=== PATIENT | female | born 1945 | race Asian ===

== ENCOUNTER 2022-01-17 14:55 | Emergency (ER) | payer MEDICARE, MEDICAID, SELFPAY ==
--- NOTE | ~2022-01-17 | CT_ITS ---
EXAMINATION: CT ABDOMEN AND PELVIS WITHOUT CONTRAST CLINICAL INFORMATION: Right flank pain, pyelonephritis/stone COMPARISON: None TECHNIQUE: Multidetector volumetric imaging was performed from the superior aspect of the liver through the pubic symphysis. Sagittal and coronal reformatted images were obtained on the technologist's workstation. This CT examination was performed using dose optimization techniques as appropriate, variously including the following: *Automated exposure control *Adjustment of mA and/or kV according to patient size (this includes techniques or standardized protocols for targeted exams where dose is matched to indication/reason for exam; i.e. extremities or head) *Use of iterative reconstruction technique DLP: 320 mGy-cm FINDINGS: LUNG BASES: Subsegmental bibasilar atelectasis. A few scattered lung nodules are noted at the lung bases, such as measuring 7 x 5 mm on the right on image 24/771, 7 x 6 mm on the right on image 63, and 6 mm on the left on image 57. Coronary artery calcifications are present. LIVER, GALLBLADDER, AND BILIARY TREE: The liver is normal in size, shape, and attenuation. Subcentimeter hypodensity in the lower right hepatic lobe is suggestive of a cyst, though too small to characterize. No biliary ductal dilatation is present. Gallbladder appears absent. PANCREAS: Unremarkable. SPLEEN: Unremarkable. ADRENAL GLANDS: Unremarkable. KIDNEYS AND URETERS: No hydronephrosis or obstructing calculus identified. There are multiple scattered calculi throughout both kidneys, measuring up to 1.0 cm in the right lower pole and 2 stones each measuring 1.3 cm in the mid right kidney. Scattered left renal calculi are subcentimeter in size. There is a mid right renal cyst measuring approximately 4.2 cm; no follow-up recommended. BLADDER: Nearly empty and not adequately assessed. GASTROINTESTINAL TRACT: No evidence of bowel obstruction. Colonic diverticulosis is noted without convincing diverticulitis. No significant bowel wall thickening is seen. The appendix is unremarkable. No free fluid or free air is seen. ABDOMINAL WALL: No significant hernia is appreciated. LYMPH NODES: Normal. VASCULAR: Scattered atherosclerotic calcifications along the aorta. PELVIC VISCERA: Grossly unremarkable. OSSEOUS STRUCTURES: Unremarkable. CT/CT abdomen pelvis wo IV con IMPRESSION: 1. Multiple bilateral renal calculi, larger on the right than the left. No hydronephrosis or obstructing ureteral calculus identified. Limited assessment for pyelonephritis in the absence of intravenous contrast. 2. Bilateral lung nodules, age-indeterminate and which may be benign or malignant in nature. According to the UPDATED 2017 Fleischner Society recommendations, the advised follow-up imaging for multiple solid nodules, the largest measuring 6 mm or greater, is: LOW RISK PATIENT: CT at 3-6 months, then consider CT at 18-24 months. HIGH RISK PATIENT: CT at 3-6 months, then at 18-24 months.
[2022-01-17 15:00] VITALS: BP 134/66; PULSE 100; RESP 16; TEMP 37.6; O2SAT 97; BMI 18.6
[2022-01-17 15:34] LABS: MANUAL DIFF FLAG NO
[2022-01-17 15:39] LABS: Appearance Urine Cloudy; Color Urine Yellow; Glucose Urine UA 250 mg/dL (Negative); Leukocyte Esterase Urine Large (3+) (Negative); Nitrite Urine Negative (Negative); PH 5.5 (5.0-9.0); Specific Gravity - Urine 1.015 (1.005-1.025); UMIC TRIGGER UACC YES; Urine Blood Small (1+) (Negative); Urine Ketones Trace mg/dL (Negative); Urine Protein 30 (1+) mg/dL (Neg-Trace)
[2022-01-17 15:41] LABS: Basophils Percent Auto 0.4 % (0-2); Eosinophils Percent Auto 0.4 % (0-4); Hematocrit 34.7 % (37.0-47.0); Hemoglobin 11.4 g/dl (12.0-16.0); Imm Gran Abs Auto 0.01 X10*3/uL (0.00-0.03); Imm Gran Pct Auto 0.2 % (0.0-0.4); Lymphocytes Absolute Auto 0.8 X10*3/uL (1.2-4.9); Lymphocytes Percent Auto 17.9 % (20-40); Mean Corpuscular HGB Conc 32.9 g/dl (31.0-35.0); Mean Corpuscular Hemoglobin 28.1 pg (27.0-33.0); Mean Corpuscular Volume 85.5 fL (80.0-98.0); Mean Platelet Volume 10.1 fL (9.4-12.3); Monocytes Absolute Auto 0.5 X10*3/uL (0.1-1.2); Monocytes Percent Auto 10.3 % (2-11); Neutrophils Absolute Auto 3.2 x10*3/uL (2.0-8.3); Neutrophils Percent Auto 70.8 % (45-73); Platelet Count 180 X10*3/uL (160-400); Red Blood Count 4.06 X10*6/uL (4.20-5.50); Red Cell Distribution Width 12.9 % (11.0-16.0); White Blood Count 4.6 X10*3/uL (4.8-10.8)
[2022-01-17 15:46] LABS: Bacteria Urine None Seen (None Seen); UACC Culture Trigger YES; WBC Urine >50 /HPF (0-5)
[2022-01-17 15:52] LABS: Alanine Aminotransferase 15 U/L (0-31); Alkaline Phosphatase 75 U/L (39-117); Anion Gap 19 (12-20); Aspartate Amino Transferase 16 U/L (5-31); Bilirubin Total 0.7 mg/dL (0.0-1.0); Blood Urea Nitrogen 18 mg/dL (9-16); Calcium 9.1 mg/dL (8.4-10.2); Carbon Dioxide 22 mmol/L (22-29); Chloride 99 mmol/L (96-108); Creatinine Clr Calc Pharmacy 34.8; Estimated Glomerular Filt Rate 51; Glucose Random 276 mg/dL (60-115); Potassium 4.6 mmol/L (3.3-5.1); Sodium 135 mmol/L (135-145); Total Protein 7.4 g/dL (6.5-8.0)
[2022-01-17 20:42] VITALS: BP 134/63; PULSE 106; RESP 20; TEMP 38.3; O2SAT 99
[2022-01-17] MEDS: Acetaminophen 325 MG TABLET 650 MG PO (20:59)
[2022-01-17 22:56] VITALS: BP 130/66; PULSE 95; RESP 14; TEMP 37.1; O2SAT 96
--- NOTE | 2022-01-17 23:11 | ED.FEMALEGU ---
HPI - Female Genitourinary General Chief complaint: Urogenital-Female Stated complaint: R side pain. possible uti Time Seen by Provider: 01/17/22 23:11 Source: patient Mode of arrival: ambulatory Limitations: no limitations History of Present Illness HPI Narrative: Patient's history of recurrent UTI with history of kidney stone, seen urologist in the past comes with UTI symptoms with dysuria hesitancy frequency for last 4 days started on Macrobid yesterday today patient had chills and right flank pain with nausea and came to the ER no vomiting no shortness of breath Related Data Previous Rx's Medication Instructions Recorded ciprofloxacin HCl 500 mg tablet 500 mg PO BID #20 tabs 01/18/22 (Cipro) Allergies Allergy/AdvReac Type Severity Reaction Status Date / Time No Known Allergies Allergy Verified 01/17/22 14:59 Review of Systems Review of Systems: Yes all other systems are reviewed and are negative [facility] Social History Social History Alcohol intake: never Patient Tobacco Use Status: Never used Tobacco Use of substances other than those prescribed or required for medical reasons: No Advance Directives: No Advance Directives Information Provided: Yes Patient : No Physical Exam Vital Signs: Vital Signs: Last Vital Signs Temp 98.7 F 01/17/22 22:56 Pulse 95 01/17/22 22:56 Resp 14 01/17/22 22:56 BP 130/66 01/17/22 22:56 Pulse Ox 96 01/17/22 22:56 O2 Del Method 01/17/22 22:56 BMI result Body Mass Index 18.6 Appearance: Alert. Oriented X3. No acute distress. Eyes: PERRLA, No Nystagmus ENT: Pharynx normal. Oral Mucosa moist Neck: Normal inspection. Neck supple. CVS: Normal heart rate and rhythm. Pulses normal. Respiratory: No respiratory distress. Equal air entry bilateral, no wheezing/rales/rhonchi Abdomen: Soft and nontender. Bowel sounds are present, no mass palpable, right CVA tenderness ++ Skin: Skin warm and dry. Normal skin color. Normal skin turgor. Extremities: No lower extremity edema. No calf tenderness Neuro: Oriented X 3. No motor deficit. No sensory deficit.No cerebellar signs , cranial nerves II-XII intact MDM - Female Genitourinary MDM Narrative Medical decision making narrative: Patient with significant UTI with kidney stone nonobstructive normal lactic acid normal CBC count will discharge patient home on Cipro advised to follow with urologist Medical Records Attestation: I reviewed the patient's medical records. Lab Data Attestation: I reviewed the patient's lab results. Result diagrams: 01/17/22 15:24 01/17/22 15:24 Labs: Lab Results 01/17/22 01/17/22 01/17/22 Range/Units 15:24 15:24 15:24 WBC 4.6 L (4.8-10.8) X10*3/uL RBC 4.06 L (4.20-5.50) X10*6/uL Hgb 11.4 L (12.0-16.0) g/dl Hct 34.7 L (37.0-47.0) % MCV 85.5 (80.0-98.0) fL MCH 28.1 (27.0-33.0) pg MCHC 32.9 (31.0-35.0) g/dl RDW 12.9 (11.0-16.0) % Plt Count 180 (160-400) X10*3/uL MPV 10.1 (9.4-12.3) fL Immature Gran % (Auto) 0.2 (0.0-0.4) % Neut % (Auto) 70.8 (45-73) % Lymph % (Auto) 17.9 L (20-40) % Bledsoe % (Auto) 10.3 (2-11) % Eos % (Auto) 0.4 (0-4) % Baso % (Auto) 0.4 (0-2) % Lymph # (Auto) 0.8 L (1.2-4.9) X10*3/uL Bledsoe # (Auto) 0.5 (0.1-1.2) X10*3/uL Eos # (Auto) 0.0 (0.0-0.4) X10*3/uL Baso # (Auto) 0.0 (0.0-0.2) X10*3/uL Abs Immat Gran (auto) 0.01 (0.00-0.03) X10*3/uL Absolute Neuts (auto) 3.2 (2.0-8.3) x10*3/uL Absolute Nucleated RBC 0.000 (0.0-0.012) X10*3/uL Nucleated RBC % (auto) 0.0 (0.0-0.2) /100WBC Sodium 135 (135-145) mmol/L Potassium 4.6 (3.3-5.1) mmol/L Chloride 99 (96-108) mmol/L Carbon Dioxide 22 (22-29) mmol/L Anion Gap 19 (12-20) BUN 18 H (9-16) mg/dL Creatinine 1.05 (0.5-1.4) mg/dL Estim Creat Clear Calc 34.8 Estimated GFR 51 Random Glucose 276 H (60-115) mg/dL Lactic Acid (0.5-2.0) mmol/L Calcium 9.1 (8.4-10.2) mg/dL Total Bilirubin 0.7 (0.0-1.0) mg/dL AST 16 (5-31) U/L ALT 15 (0-31) U/L Alkaline Phosphatase 75 (39-117) U/L Total Protein 7.4 (6.5-8.0) g/dL Albumin 4.0 (3.5-5.0) g/dL Urine Color Yellow Urine Appearance Cloudy Urine pH 5.5 (5.0-9.0) Ur Specific [place] 1.015 (1.005-1.025) Urine Protein 30 (1+) H (Neg-Trace) mg/dL Urine Glucose (UA) 250 H (Negative) mg/dL Urine Ketones Trace (Negative) mg/dL Urine Blood Small (1+) H (Negative) Urine Nitrite Negative (Negative) Ur Leukocyte Esterase Large (3+) H (Negative) Urine RBC 11-20 H (0-2) /HPF Urine WBC >50 H (0-5) /HPF Ur Squamous Epith Cells 6-10 (0-2) /HPF Urine Bacteria None Seen (None Seen) Hyaline Casts 3-5 (0-2) /LPF 01/17/22 Range/Units 23:48 WBC (4.8-10.8) X10*3/uL RBC (4.20-5.50) X10*6/uL Hgb (12.0-16.0) g/dl Hct (37.0-47.0) % MCV (80.0-98.0) fL MCH (27.0-33.0) pg MCHC (31.0-35.0) g/dl RDW (11.0-16.0) % Plt Count (160-400) X10*3/uL MPV (9.4-12.3) fL Immature Gran % (Auto) (0.0-0.4) % Neut % (Auto) (45-73) % Lymph % (Auto) (20-40) % Bledsoe % (Auto) (2-11) % Eos % (Auto) (0-4) % Baso % (Auto) (0-2) % Lymph # (Auto) (1.2-4.9) X10*3/uL Bledsoe # (Auto) (0.1-1.2) X10*3/uL Eos # (Auto) (0.0-0.4) X10*3/uL Baso # (Auto) (0.0-0.2) X10*3/uL Abs Immat Gran (auto) (0.00-0.03) X10*3/uL Absolute Neuts (auto) (2.0-8.3) x10*3/uL Absolute Nucleated RBC (0.0-0.012) X10*3/uL Nucleated RBC % (auto) (0.0-0.2) /100WBC Sodium (135-145) mmol/L Potassium (3.3-5.1) mmol/L Chloride (96-108) mmol/L Carbon Dioxide (22-29) mmol/L Anion Gap (12-20) BUN (9-16) mg/dL Creatinine (0.5-1.4) mg/dL Estim Creat Clear Calc Estimated GFR Random Glucose (60-115) mg/dL Lactic Acid 1.0 (0.5-2.0) mmol/L Calcium (8.4-10.2) mg/dL Total Bilirubin (0.0-1.0) mg/dL AST (5-31) U/L ALT (0-31) U/L Alkaline Phosphatase (39-117) U/L Total Protein (6.5-8.0) g/dL Albumin (3.5-5.0) g/dL Urine Color Urine Appearance Urine pH (5.0-9.0) Ur Specific [place] (1.005-1.025) Urine Protein (Neg-Trace) mg/dL Urine Glucose (UA) (Negative) mg/dL Urine Ketones (Negative) mg/dL Urine Blood (Negative) Urine Nitrite (Negative) Ur Leukocyte Esterase (Negative) Urine RBC (0-2) /HPF Urine WBC (0-5) /HPF Ur Squamous Epith Cells (0-2) /HPF Urine Bacteria (None Seen) Hyaline Casts (0-2) /LPF Discharge Plan Discharge Clinical Impression: Urinary tract infection, Kidney calculi Patient Disposition: Home, Self-Care Instructions: Kidney Stones (ED), Urinary Tract Infection in Women (ED) Additional Instructions: Drink plenty of fluids Take antibiotic as prescribed Follow-up with urology Prescriptions: New ciprofloxacin HCl [Cipro] 500 mg tablet 500 mg PO BID Qty: 20 0RF
--- OUTSIDE RECORDS SUMMARY | 2022-01-17 23:20 | XMS_ITS | Continuity of Care Document ---
:1945 Author Organization [facility] Adult Address [address] [place] [address]- Care Team Providers Name Role Phone Lorenzo WARNER, Juanita Primary Care Physician [facility]counter [facility] Date(s): 05/11/21 - 06/10/21 [facility] Adult [address] [place] [phone]- Allergies, Adverse Reactions, Alerts No Known Allergies Immunizations Given and Recorded Vaccine Date Status Refusal Reason SARS-CoV-2 mRNA ([id number]) vax 05/27/21 Recorde d tetanus-diphtheria toxoids (Td)1 02/02/21 Given tetanus-diphtheria toxoids (Td)2 01/09/06 Given SARS-CoV-2 (COVID-19) mRNA BNT-162b2 vac 04/01/20 Recorde d pneumococcal 13-valent vaccine 02/15/15 Given influenza virus vaccine, inactivated 02/15/15 Given influenza virus vaccine, inactivated 04/03/14 Given influenza virus vaccine, inactivated 01/24/13 Given influenza virus vaccine, inactivated 01/05/11 Given influenza virus vaccine, inactivated 06/08/09 Given pneumococcal 23-valent vaccine 04/03/14 Given FluLaval (oldterm)3 01/11/12 Given FluLaval (oldterm) 03/17/10 Given Meningococcal Conjugate Vaccine 01/05/11 Given influ virus vac, H1N1, inactive(oldterm) 06/08/09 Given Influenza Virus Vaccine (oldterm)4 04/20/08 Given Influenza Virus Vaccine (oldterm) 05/08/06 Given Pneumococcal Vacc (oldterm) 02/13/06 Given 1Result Comment: [facility] [id number] Note: M[facility] PUBLIC [id number] Note: Vis Date 10/16/[id number] Note: [facility] public health Medications aspirin 81 mg oral tablet See Instructions, 1 tablet By Mouth 3 days a week, # 100 tablet, 3 Refills, 11/05/17 10:49:26 EDT Start Date: 11/05/17 Status: OrderedFreestyle Lancets See Instructions, # 6 pack/packet, Refills 5, Tot. Refills 5, Maintenance, test 2 times a day E11.9,09/23/20 15:53:00 EDT, Compound, 152, cm, 09/23/20 15:22:00 EDT, Height Start Date: 09/23/20 Status: OrderedFreestyle Lite Test Strips See Instructions, # 100 each, Refills 11, Tot. Refills 11, Maintenance, Use to test blood sugars twice daily for DMII, uncontrolled E11.9, 12/25/17 15:03:55 EDT, Compound Start Date: 12/25/17 Status: OrderedGlunil 5mg Glunil 5mg, 0 Refills, Maintenance, 02/02/21 11:47:00 EDT Start Date: 02/02/21 Status: OrderedLeft wrist splint Left wrist splint, See Instructions, # 1 each, Refills 0, Tot. Refills 0, Maintenance, Apply daily remove HS and PRN, 06/16/20 11:51:00 EST, Supply Start Date: 06/16/20 Status: OrderedmetFORMIN 1000 mg oral tablet 1 tablet, By Mouth, 2 times a day, # 180 tablet, 0 Refills, Maintenance, 03/10/21 11:55:00 EST, [id number], 152, cm, 02/02/21 11:27:00 EDT, Height Start Date: 03/10/21 Status: Orderedraloxifene 60 mg oral tablet 1 tablet = 60 mg, By Mouth, Daily, # 90 tablet, 3 Refills, Soft Stop, 06/16/20 9:18:00 EST, [id number], 152, cm, 06/14/20 14:01:00 EST, Height Start Date: 06/16/20 Status: OrderedSuper Collagen C, 2-3 tablets a day Super Collagen C, 2-3 tablets a day, Refills 0, Maintenance, 01/16/17 11:39:53, Compound Start Date: 01/16/17 Status: Ordered Problem List Condition Effective Dates Status Health Status Informant DM - Diabetes mellitus(Confirmed) Active Hypercholesterolemia(Confirmed) Active Kidney stones(Confirmed) Active Osteoporosis(Confirmed) Active Social History Social History Type Response Smoking Status Never (less than 100 in life time) entered on: 06/14/20 Sex
--- OUTSIDE RECORDS SUMMARY | 2022-01-17 23:21 | XMS_ITS | Continuity of Care Document ---
:1945 Author Organization [facility] Adult Address [address] [place] [address]- Care Team Providers Name Role Phone Juanita Ventura NP Primary Care Physician [place] [facility]21 [place] 02/09/21 [facility] [address] [place] [phone]- Encounter Diagnosis Uncontrolled type 2 diabetes mellitus (Discharge Diagnosis) - 02/02/21 Comprehensive diabetic foot examination, type 2 DM, encounter for (Discharge Diagnosis) - 02/02/21 Attending Physician: uJanita Ventura NP Allergies, Adverse Reactions, Alerts Substance Reaction Severity Status NKA Active Immunizations Given and Recorded Vaccine Date Status Refusal Reason tetanus-diphtheria toxoids (Td)1 02/02/21 Given tetanus-diphtheria toxoids (Td)2 01/09/06 Given pneumococcal 13-valent vaccine 02/15/15 Given influenza virus [...] Pneumococcal Vacc (oldterm) 02/13/06 Given 1Result Comment: [facility] [id number] Note: [facility] PUBLIC [id number] Note: Vis Date 10/16/[id number] Note: [facility] public health Medications aspirin 81 [...] Status: OrderedmetFORMIN 1000 mg oral tablet 1 tablet = 1,000 mg, By Mouth, 2 times a day, # 180 tablet, 1 Refills, Maintenance, 09/23/20 15:54:00 EDT, Tablet, [id number], 152, cm, 09/23/20 15:22:00 EDT, Height Start Date: 09/23/20 Status: Orderedraloxifene 60 mg oral tablet 1 [...] Hypercholesterolemia(Confirmed) Active Kidney stones(Confirmed) Active Osteoporosis(Confirmed) Active Diagnosis Diagnosis Type Effective Dates Health Clinical Infor mant Status Service Uncontrolled type 2 Discharge 02/02/21 diabetes mellitus Diagnosis Comprehensive Discharge 02/02/21 diabetic foot Diagnosis examination, type 2 DM, encounter for Vital Signs Most recent to oldest [Reference Range]: 1 Height 152 cm (02/02/21 11:27 AM) Weight 49.8 kg (02/02/21 11:27 AM) Oxygen Saturation [94-100 %] 97 % (02/02/21 11:27 AM) Pulse Rate [55-90 bpm] 97 bpm *H* (02/02/21 11:27 AM) Body Mass Index [18.5-24.99] 21.55 (02/02/21 11:27 AM) Blood Pressure [90-138/55-84 mm Hg] 112/61 mm Hg (02/02/21 11:27 AM) Temperature [96.8-100.4 DegF] 98.5 DegF (02/02/21 11:27 AM) Blood pressure sites Arm, left (02/02/21 11:27 AM) Temperature Route Oral (02/02/21 11:27 AM) Weight Obtained Via Standing scale (02/02/21 11:27 AM) Social History Social History Type Response Smoking Status Never (less than 100 in life time) entered on: 06/14/20 Sex
--- OUTSIDE RECORDS SUMMARY | 2022-01-17 23:21 | XMS_ITS | Continuity of Care Document ---
:1945 Author Organization [facility] Adult Address [address] [place] [address]- Care Team Providers Name Role Phone Juanita Ventura NP Primary Care Physician Encounter [facility] Date(s): 08/18/20 - 09/17/20 [facility] Adult [address] [place] [id number] Attending Physician: Admtr, Ar8 Allergies, Adverse Reactions, Alerts Substance Reaction Severity Status NKA Active Immunizations Given and Recorded Vaccine Date Status Refusal Reason pneumococcal 13-valent vaccine 02/15/15 Given influenza virus vaccine, inactivated 02/15/15 Given influenza virus vaccine, inactivated 04/03/14 Given influenza virus vaccine, inactivated 01/24/13 Given influenza virus vaccine, inactivated 01/05/11 Given influenza virus vaccine, inactivated 06/08/09 Given pneumococcal 23-valent vaccine 04/03/14 Given FluLaval (oldterm)1 01/11/12 Given FluLaval (oldterm) 03/17/10 Given Meningococcal Conjugate Vaccine 01/05/11 Given influ virus vac, H1N1, inactive(oldterm) 06/08/09 Given Influenza Virus Vaccine (oldterm)2 04/20/08 Given Influenza Virus Vaccine (oldterm) 05/08/06 Given Pneumococcal Vacc (oldterm) 02/13/06 Given tetanus-diphtheria toxoids (Td)3 01/09/06 Given 1Admin Note: Vis Date 10/16/[id number] Note: [facility] public [id number] Note: [facility] Medications aspirin 81 mg oral tablet See Instructions, 1 tablet By Mouth 3 days a week, # 100 tablet, 3 Refills, 11/05/17 10:49:26 EDT Start Date: 11/05/17 Status: OrderedFreestyle Lancets See Instructions, # 1 box, Maintenance, test 2 times a day E11.9, 05/01/18 15:07:04 EST, Compound Start Date: 05/01/18 Status: OrderedFreestyle Lite Test Strips See Instructions, # 100 each, Refills 11, Tot. Refills 11, Maintenance, Use to test blood sugars twice daily for DMII, uncontrolled E11.9, 12/25/17 15:03:55 EDT, Compound Start Date: 12/25/17 Status: OrderedglyBURIDE 5 mg oral tablet 5 mg, 1, tablet, By Mouth, 2 times a day, # 180 tablet, Refills 0, Tot. Refills 0, Maintenance, 06/16/20 9:16:00 EST, Route to Pharmacy Electronically, [facility]pharmacy #[id number], Partial fill upon patient request if the prescription is for a schedule II opio... Start Date: 06/16/20 Stop Date: 09/14/20 Status: OrderedLeft wrist splint Left wrist splint, See Instructions, # 1 each, Refills 0, Tot. Refills 0, Maintenance, Apply daily remove HS and PRN, 06/16/20 11:51:00 EST, Supply Start Date: 06/16/20 Status: OrderedmetFORMIN 1000 mg oral tablet 1 tablet = 1,000 mg, By Mouth, 2 times a day, # 180 tablet, 1 Refills, Maintenance, 06/16/20 9:18:00EST, Tablet, [facility]/pharmacy #[id number], 152, cm, 06/14/20 14:01:00 EST, Height Start Date: 06/16/20 Status: Orderedpravastatin 20 mg oral tablet See Instructions, TAKE 1 TABLET BY MOUTH EVERY DAY AT BEDTIME, # 90 tablet, Refills 3, Tot. Refills 3, Soft Stop, 06/16/20 9:18:00 EST, Instructions Replace Required Details, Route to [facility], [id number], 152, cm, 06/14/20 14:0... Start Date: 06/16/20 Status: Orderedraloxifene 60 mg oral tablet 1 tablet = 60 mg, By Mouth, Daily, # 90 tablet, 3 Refills, Soft Stop, 06/16/20 9:18:00 EST, [facility]/pharmacy #[id number], 152, cm, 06/14/20 14:01:00 EST, Height Start Date: 06/16/20 Status: OrderedSuper Collagen C, 2-3 tablets a day Super Collagen C, 2-3 tablets a day, Refills 0, Maintenance, 01/16/17 11:39:53, Compound Start Date: 01/16/17 Status: Ordered Problem List Condition Effective Dates Status Health Status Informant DM - Diabetes mellitus(Confirmed) Active Hypercholesterolemia(Confirmed) Active Kidney stones(Confirmed) Active Osteoporosis(Confirmed) Active Supraventricular Active tachycardia(Confirmed) Social History Social History Type Response Smoking Status Never (less than 100 in life time) entered on: 06/14/20 Sex
--- OUTSIDE RECORDS SUMMARY | 2022-01-17 23:21 | XMS_ITS | Continuity of Care Document ---
:1945 Author Organization [facility] Adult Address [address] [place] [address]- Care Team Providers Name Role Phone Lorenzo WARNER, Juanita Primary Care Physician Encounter [facility] Date(s): 09/22/20 - 10/22/20 [facility] Adult [address] [place] [address]- Allergies, Adverse Reactions, Alerts Substance Reaction Severity [...] (Td)3 01/09/06 Given 1Admin Note: Vis Date 10/16/[id number] Note: [facility] public [id number] Note: [facility] Medications aspirin 81 [...] times a day, # 180 tablet, Refills 5, Tot. Refills 5, Maintenance, 09/23/20 15:54:00 EDT, Route to Pharmacy Electronically, [facility]/pharmacy #[id number], Partial fill upon patient request if the prescription is for a schedule II opi... Start Date: 09/23/20 Stop Date: 03/17/22 Status: OrderedLeft wrist splint Left wrist splint, See Instructions, # 1 each, Refills 0, Tot. Refills 0, Maintenance, Apply daily remove HS and PRN, 06/16/20 11:51:00 EST, Supply Start Date: 06/16/20 Status: OrderedmetFORMIN 1000 mg oral tablet 1 tablet = 1,000 mg, By Mouth, 2 times a day, # 180 tablet, 1 Refills, Maintenance, 09/23/20 15:54:00 EDT, Tablet, [facility]/pharmacy #[id number], 152, cm, 09/23/20 15:22:00 EDT, Height Start Date: 09/23/20 Status: Orderedraloxifene 60 mg oral tablet 1 tablet = 60 mg, By Mouth, Daily, # 90 tablet, 3 Refills, Soft Stop, 06/16/20 9:18:00 EST, [facility]/pharmacy #[id number], 152, cm, 06/14/20 14:01:00 EST, Height [...]
--- OUTSIDE RECORDS SUMMARY | 2022-01-17 23:21 | XMS_ITS | Continuity of Care Document ---
:1945 Author Organization [facility] Adult Address [address] [place] [address]- Care Team Providers Name Role Phone Lorenzo WARNER, Juanita Primary Care Physician Encounter [facility] Date(s): 08/18/20 - 08/25/20 [facility] Adult [address] [place] [phone]- Attending Physician: Karlee Tejada MD Allergies, Adverse Reactions, Alerts Substance Reaction Severity [...] (Td)3 01/09/06 Given 1Admin Note: Vis Date 10/16/[id number] Note: [facility] public [id number] Note: [facility] Medications aspirin 81 [...] 06/16/20 9:16:00 EST, Route to Pharmacy Electronically, [facility]/pharmacy #[id number], Partial fill upon patient request [...] tablet, 1 Refills, Maintenance, 06/16/20 9:18:00EST, Tablet, [facility]/pharmacy #[id number], 152, cm, 06/14/20 14:01:00 EST, Height Start Date: 06/16/20 Status: Orderedpravastatin 20 mg oral tablet See Instructions, TAKE 1 TABLET BY MOUTH EVERY DAY AT BEDTIME, # 90 tablet, Refills 3, Tot. Refills 3, Soft Stop, 06/16/20 9:18:00 EST, Instructions Replace Required Details, Route to Pharmacy Electronically, [facility]/pharmacy #[id number], 152, cm, 06/14/20 14:0... Start Date: [...] stones(Confirmed) Active Osteoporosis(Confirmed) Active Supraventricular Active tachycardia(Confirmed) Vital Signs Most recent to oldest [Reference Range]: 1 Height 152 cm (08/18/20 4:36 PM) Social History Social History Type Response Smoking Status Never (less than 100 in life time) entered on: 06/14/20 Sex
--- OUTSIDE RECORDS SUMMARY | 2022-01-17 23:21 | XMS_ITS | Continuity of Care Document ---
:1945 Author Organization [facility] Adult Address [address] [place] [address]- Care Team Providers Name Role Phone Juanita Ventura NP Primary Care Physician [place] [facility] [place] 06/08/21 [facility] [address] [place] [address]- Attending Physician: Admtr, Ar8 Allergies, Adverse Reactions, Alerts No Known Allergies Immunizations Given and Recorded Vaccine Date Status Refusal Reason SARS-CoV-2 mRNA ([id number]) vax 05/27/21 Recorde d tetanus-diphtheria toxoids (Td)1 [...] Pneumococcal Vacc (oldterm) 02/13/06 Given 1Result Comment: [facility] [id number] Note: M[facility] PUBLIC [id number] Note: Vis Date 10/16/201140998Iezsk Note: [facility] public health Medications aspirin 81 [...]
--- OUTSIDE RECORDS SUMMARY | 2022-01-17 23:21 | XMS_ITS | Continuity of Care Document ---
:1945 Author Organization [facility] Adult Address [address] [place] [address]- Care Team Providers Name Role Phone Juanita Ventura NP Primary Care Physician Encounter [facility] Date(s): 09/23/20 - 09/30/20 [facility] [address] [place] [phone]- Encounter Diagnosis DM - Diabetes mellitus (Discharge Diagnosis) - 09/23/20 Hypercholesterolemia (Discharge Diagnosis) - 09/23/20 Urinary disorder (Discharge Diagnosis) - 09/23/20 Attending Physician: Gardenia Benavidez MD Allergies, Adverse Reactions, Alerts Substance Reaction [...] (Td)3 01/09/06 Given 1Admin Note: Vis Date 10/16/[id number] Note: [facility] public [id number] Note: [facility] Medications aspirin 81 [...] 09/23/20 15:54:00 EDT, Route to Pharmacy Electronically, [facility]/pharmacy #[id number], Partial fill upon patient request [...] 1 Refills, Maintenance, 09/23/20 15:54:00 EDT, Tablet, [facility]/pharmacy #[id number], 152, cm, 09/23/20 15:22:00 EDT, Height Start Date: 09/23/20 Status: Orderedraloxifene 60 mg oral tablet 1 tablet = 60 mg, By Mouth, Daily, # 90 tablet, 3 Refills, Soft Stop, 06/16/20 9:18:00 EST, [facility]/pharmacy #[id number], 152, cm, 06/14/20 14:01:00 EST, Height Start Date: 06/16/20 Status: OrderedSuper Collagen C, 2-3 tablets a day Super Collagen C, 2-3 tablets a day, Refills 0, Maintenance, 01/16/17 11:39:53, Compound Start Date: 01/16/17 Status: Ordered Problem List Condition Effective Dates Status Health Status Informant DM - Diabetes mellitus(Confirmed) Active Hypercholesterolemia(Confirmed) Active Kidney stones(Confirmed) Active Osteoporosis(Confirmed) Active Diagnosis Diagnosis Type Effective Health Clinical Informant Dates Status Service DM - Diabetes mellitus Discharge 09/23/20 Diagnosis Hypercholesterolemia Discharge 09/23/20 Diagnosis Urinary disorder Discharge 09/23/20 Diagnosis Vital Signs Most recent to oldest [Reference Range]: 1 Height 152 cm (09/23/20 3:22 PM) Weight 49.2 kg (09/23/20 3:22 PM) Oxygen Saturation [94-100 %] 98 % (09/23/20 3:22 PM) Pulse Rate [55-90 bpm] 90 bpm (09/23/20 3:22 PM) Body Mass Index [18.5-24.99] 21.3 (09/23/20 3:22 PM) Blood Pressure [90-138/55-84 mm Hg] 118/62 mm Hg (09/23/20 3:22 PM) Mode of Delivery (Oxygen) Room air (09/23/20 3:22 PM) Blood pressure sites Arm, right (09/23/20 3:22 PM) Weight Obtained Via Standing scale (09/23/20 3:22 PM) Social History Social History Type Response Smoking Status Never (less than 100 in life time) entered on: 06/14/20 Sex
--- OUTSIDE RECORDS SUMMARY | 2022-01-17 23:21 | XMS_ITS | Continuity of Care Document ---
:1945 Author Organization [facility] Address [address] [place] [phone]- Care Team Providers Name Role Phone oLrenzo WARNER, Juanita Primary Care Physician Encounter [facility] [place] Date(s): 02/21/21 - 04/07/[address] [id number] Attending Physician: Juanita Ventura NP Admitting Physician: Juanita Ventura NP Referring Physician: Juanita Ventura NP Allergies, Adverse Reactions, Alerts Substance [...] Pneumococcal Vacc (oldterm) 02/13/06 Given 1Result Comment: [facility] [id number] Note: MASS PUBLIC [id number] Note: Vis Date 10/16/[id number] Note: [facility] public health Medications aspirin 81 [...]
--- OUTSIDE RECORDS SUMMARY | 2022-01-17 23:21 | XMS_ITS | Continuity of Care Document ---
:1945 Author Organization [facility] Adult Address [address] [place] [address]- Care Team Providers Name Role Phone Juanita Ventura NP Primary Care Physician Encounter [facility] Date(s): 06/14/20 - 07/14/20 [facility] Adult [address] [place] [id number] Attending Physician: Admtr, Ar8 Allergies, Adverse Reactions, [...] (Td)3 01/09/06 Given 1Admin Note: Vis Date 10/16/201176313Jdsyv Note: [facility] [id number] Note: [facility] Medications aspirin 81 [...] 06/16/20 9:16:00 EST, Route to Pharmacy Electronically, [facility]/pharmacy #[id number], Partial fill upon patient request [...] tablet, 1 Refills, Maintenance, 06/16/20 9:18:00EST, Tablet, [facility]/pharmacy #[id number], 152, cm, 06/14/20 14:01:00 EST, Height Start Date: 06/16/20 Status: Orderedpravastatin 20 mg oral tablet See Instructions, TAKE 1 TABLET BY MOUTH EVERY DAY AT BEDTIME, # 90 tablet, Refills 3, Tot. Refills 3, Soft Stop, 06/16/20 9:18:00 EST, Instructions Replace Required Details, Route to Pharmacy Electronically, [facility]/pharmacy #[id number], 152, cm, 06/14/20 14:0... Start Date: 06/16/20 Status: Orderedraloxifene 60 mg oral tablet 1 tablet = 60 mg, By Mouth, Daily, # 90 tablet, 3 Refills, Soft Stop, 06/16/20 9:18:00 EST, [facility]/pharmacy #[id number], 152, cm, 06/14/20 14:01:00 EST, [...]
--- OUTSIDE RECORDS SUMMARY | 2022-01-17 23:21 | XMS_ITS | Continuity of Care Document ---
:1945 Author Organization [facility] Adult Address [address] [place] [address]- Care Team Providers Name Role Phone Lorenzo WARNER, Juanita Primary Care Physician Encounter [facility] Date(s): 02/02/21 - 03/04/21 [facility] Adult [address] [place] [phone]- Allergies, Adverse Reactions, Alerts Substance Reaction Severity [...] Pneumococcal Vacc (oldterm) 02/13/06 Given 1Result Comment: [facility] [id number] Note: [facility] [id number] Note: Vis Date 10/16/201148842Ugtsw Note: [facility] Medications aspirin 81 [...] 1 Refills, Maintenance, 09/23/20 15:54:00 EDT, Tablet, [facility]/pharmacy #[id number], 152, cm, 09/23/20 15:22:00 EDT, Height Start Date: 09/23/20 Status: Orderedraloxifene 60 mg oral tablet 1 tablet = 60 mg, By Mouth, Daily, # 90 tablet, 3 Refills, Soft Stop, 06/16/20 9:18:00 EST, [facility]/pharmacy #[id number], 152, cm, 06/14/20 14:01:00 [...]
--- OUTSIDE RECORDS SUMMARY | 2022-01-17 23:21 | XMS_ITS | Continuity of Care Document ---
:1945 Author Organization [facility] Adult Address [address] [place] [address]- Care Team Providers Name Role Phone Lorenzo WARNER, Juanita Primary Care Physician Encounter [facility] Date(s): 02/02/21 - 03/04/21 [facility] Adult [address] [place] [phone]- Allergies, Adverse Reactions, Alerts Substance Reaction Severity [...] Pneumococcal Vacc (oldterm) 02/13/06 Given 1Result Comment: [facility] [id number] Note: [facility] [id number] Note: Vis Date 10/16/201179632Kmadz Note: [facility] Medications aspirin 81 [...] Refills, Maintenance, 09/23/20 15:54:00 EDT, Tablet, [facility]/pharmacy #[id number], 152, cm, 09/23/20 15:22:00 EDT, Height Start Date: 09/23/20 Status: Orderedraloxifene 60 mg oral tablet 1 tablet = 60 mg, By Mouth, Daily, # 90 tablet, 3 Refills, Soft Stop, 06/16/20 9:18:00 EST, [facility]/pharmacy #[id number], 152, cm, 06/14/20 14:01:00 EST, [...]
--- OUTSIDE RECORDS SUMMARY | 2022-01-17 23:21 | XMS_ITS | Continuity of Care Document ---
:1945 Author Organization [facility] Adult Address [address] [place] [address]- Care Team Providers Name Role Phone Juanita Ventura NP Primary Care Physician Encounter [facility] [place] Date(s): 06/14/20 - 06/21/20 [facility] Adult [address] [place] [phone]- Encounter Diagnosis Type 2 diabetes mellitus, uncontrolled (Discharge Diagnosis) - 06/14/20 Osteoporosis (Discharge Diagnosis) - 06/14/20 Left wrist pain (Discharge Diagnosis) - 06/14/20 Dysuria (Discharge Diagnosis) - 06/14/20 Attending Physician: Juanita Ventura NP Allergies, Adverse Reactions, [...] (Td)3 01/09/06 Given 1Admin Note: Vis Date 10/16/201193217Gevxs Note: [facility] public [id number] Note: [facility] Medications aspirin 81 [...] 06/16/20 9:16:00 EST, Route to Pharmacy Electronically, [facility]/pharmacy #[id number], Partial fill upon [...] tablet, 1 Refills, Maintenance, 06/16/20 9:18:00EST, Tablet, [facility]/pharmacy #[id number], 152, cm, 06/14/20 14:01:00 EST, Height Start Date: 06/16/20 Status: Orderednitrofurantoin macrocrystals-monohydrate 100 mg oral capsule 1 capsule = 100 mg, By Mouth, 2 times a day, for 5 days, # 10 capsule, 0 Refills, Acute 06/23/20 11:43:00 EST, 06/18/20 11:43:00 EST, [facility]/pharmacy #[id number], Partial fill upon patient request if the prescription is for a schedule II opioid drug., 152, cm,... Start Date: 06/18/20 Stop Date: 06/23/20 Status: Orderedpravastatin 20 mg oral tablet See Instructions, TAKE 1 TABLET BY MOUTH EVERY DAY AT BEDTIME, # 90 tablet, Refills 3, Tot. Refills 3, Soft Stop, 06/16/20 9:18:00 EST, Instructions Replace Required Details, Route to Pharmacy Electronically, [facility]/pharmacy #[id number], 152, cm, 06/14/20 14:0... Start Date: 06/16/20 Status: Orderedraloxifene 60 mg oral tablet 1 tablet = 60 mg, By Mouth, Daily, # 90 tablet, 3 Refills, Soft Stop, 06/16/20 9:18:00 EST, [facility]/pharmacy #[id number], 152, cm, 06/14/20 14:01:00 EST, Height Start Date: 06/16/20 Status: OrderedSuper Collagen C, 2-3 tablets a day Super Collagen C, 2-3 tablets a day, Refills 0, Maintenance, 01/16/17 11:39:53, Compound Start Date: 01/16/17 Status: Ordered Problem List Condition Effective Dates Status Health Status Informant DM - Diabetes mellitus(Confirmed) Active Hypercholesterolemia(Confirmed) Active Kidney stones(Confirmed) Active Osteoporosis(Confirmed) Active Supraventricular Active tachycardia(Confirmed) Diagnosis Diagnosis Type Effective Dates Health Clinical Infor [facility] Status Service Type 2 diabetes Discharge 06/14/20 mellitus, Diagnosis uncontrolled Osteoporosis Discharge 06/14/20 Diagnosis Left wrist pain Discharge 06/14/20 Diagnosis Dysuria Discharge 06/14/20 Diagnosis Vital Signs Most recent to oldest [Reference Range]: 1 Height 152 cm (06/14/20 2:01 PM) Weight 50.9 kg (06/14/20 2:01 PM) Body Mass Index [18.5-24.99] 22.03 (06/14/20 2:01 PM) Weight Obtained Via Patient/family stated (06/14/20 2:01 PM) Social History Social History Type Response Smoking Status Never (less than 100 in life time) entered on: 06/14/20 Sex
--- OUTSIDE RECORDS SUMMARY | 2022-01-17 23:21 | XMS_ITS | Continuity of Care Document ---
:1945 Author Organization [facility] Adult Address [address] [place] [address]- Care Team Providers Name Role Phone Juanita Ventura NP Primary Care Physician Encounter [facility] [place] Date(s): 06/18/20 - 07/18/20 [facility] Adult [address] [place] [id number] Allergies, Adverse Reactions, Alerts Substance Reaction Severity [...] (Td)3 01/09/06 Given 1Admin Note: Vis Date 10/16/201184403Pcxll Note: [facility] [id number] Note: [facility] Medications aspirin 81 mg oral tablet See Instructions, 1 tablet By Mouth 3 days a week, # 100 tablet, 3 Refills, 11/05/17 10:49:26 EDT Start Date: 11/05/17 Status: OrderedFreestyle Lancets See Instructions, # 1 box, Maintenance, test 2 times a day E11.9, 01/16/19 15:07:04 EST, Compound Start Date: 05/01/18 Status: [...] 06/16/20 9:16:00 EST, Route to Pharmacy Electronically, [facility]/pharmacy #[id number], Partial fill upon patient request if [...] tablet, 1 Refills, Maintenance, 06/16/20 9:18:00EST, Tablet, [facility]/pharmacy #[id number], 152, cm, 06/14/20 14:01:00 EST, Height [...]
--- OUTSIDE RECORDS SUMMARY | 2022-01-17 23:21 | XMS_ITS | Continuity of Care Document ---
:1945 Author Organization [facility] Adult Address [address] [place] [address]- Care Team Providers Name Role Phone Juanita Ventura NP Primary Care Physician Encounter [facility] [place] Date(s): 06/16/20 - 07/16/20 [facility] Adult [address] [place] [id number] Allergies, Adverse Reactions, Alerts Substance Reaction Severity [...] (Td)3 01/09/06 Given 1Admin Note: Vis Date 10/16/201143697Pgavv Note: [facility] public [id number] Note: [facility] Medications aspirin 81 [...] 06/16/20 9:16:00 EST, Route to Pharmacy Electronically, [facility]/pharmacy #[id number], Partial fill upon patient request [...] tablet, 1 Refills, Maintenance, 06/16/20 9:18:00EST, Tablet, [facility]/pharmacy #[id number], 152, cm, 06/14/20 14:01:00 EST, [...]
--- OUTSIDE RECORDS SUMMARY | 2022-01-17 23:21 | XMS_ITS | Continuity of Care Document ---
:1945 Author Organization [facility] Adult Address [address] [place] [address]- Care Team Providers Name Role Phone Juanita Ventura NP Primary Care Physician Encounter [facility] Date(s): 09/28/20 - 10/28/20 [facility] Adult [address] [place] [id number] Allergies, Adverse Reactions, Alerts Substance [...] (Td)3 01/09/06 Given 1Admin Note: Vis Date 10/16/201131506Uonqj Note: [facility] public [id number] Note: [facility] Medications aspirin 81 [...] 09/23/20 15:54:00 EDT, Route to Pharmacy Electronically, [facility]/pharmacy #[id number], Partial fill upon patient request [...] Refills, Maintenance, 09/23/20 15:54:00 EDT, Tablet, [facility]/pharmacy #[id number], 152, cm, 09/23/20 15:22:00 EDT, Height Start Date: 09/23/20 Status: Orderedraloxifene 60 mg oral tablet 1 tablet = 60 mg, By Mouth, Daily, # 90 tablet, 3 Refills, Soft Stop, 06/16/20 9:18:00 EST, [facility]/pharmacy #[id number], 152, cm, 06/14/20 14:01:00 EST, [...]
--- OUTSIDE RECORDS SUMMARY | 2022-01-17 23:21 | XMS_ITS | Continuity of Care Document ---
:1945 Author Organization [facility] Adult Address [address] [place] [address]- Care Team Providers Name Role Phone Juanita Ventura NP Primary Care Physician Encounter [facility] [place] Date(s): 05/09/21 - 05/16/21 [facility] Adult [address] [place] [phone]- Encounter Diagnosis DM - Diabetes mellitus (Discharge Diagnosis) - 05/09/21 Attending Physician: Juanita Ventura NP Allergies, Adverse Reactions, Alerts No Known Allergies [...] Pneumococcal Vacc (oldterm) 02/13/06 Given 1Result Comment: [facility] [id number] Note: [facility] PUBLIC [id number] Note: Vis Date 10/16/201147529Cpbxz Note: [facility] Medications aspirin 81 [...] Active Diagnosis Diagnosis Type Effective Dates Health Status Clinical In formant Service DM - Diabetes Discharge 05/09/21 mellitus Diagnosis Vital Signs Most recent to oldest [Reference Range]: 1 Height 152 cm (05/09/21 12:53 PM) Social History Social History Type Response Smoking Status Never (less than 100 in life time) entered on: 06/14/20 Sex
--- OUTSIDE RECORDS SUMMARY | 2022-01-17 23:21 | XMS_ITS | Continuity of Care Document ---
:1945 Author Organization [facility] Adult Address [address] [place] [address]- Care Team Providers Name Role Phone Lorenzo WARNER, Juanita Primary Care Physician Encounter [facility] Date(s): 02/09/21 - 03/11/21 [facility] Adult [address] [place] [address]- Allergies, Adverse Reactions, Alerts Substance Reaction Severity [...] Pneumococcal Vacc (oldterm) 02/13/06 Given 1Result Comment: [facility] [place]NOTE 2] [id number] Note: [facility] [id number] Note: Vis Date 10/16/201106681Drrur Note: [facility] Medications aspirin 81 [...] tablet, 0 Refills, Maintenance, 03/10/21 11:55:00 EST, [facility]/pharmacy #[id number], 152, cm, 02/02/21 11:27:00 EDT, Height Start Date: 03/10/21 Status: Orderedraloxifene 60 mg oral tablet 1 tablet = 60 mg, By Mouth, Daily, # 90 tablet, 3 Refills, Soft Stop, 06/16/20 9:18:00 EST, [facility]/pharmacy #[id number], 152, cm, 06/14/20 14:01:00 EST, [...]
[2022-01-17] MEDS: 0.9 % Sodium Chloride 1,000 ML 999 ML IV (23:48)
[2022-01-17] MEDS: cefTRIAXone sodium 1 GM in 0.9 % Sodium Chloride 50 ML IV (23:48)
== END 2022-01-18 01:06 | disposition home or self-care (01) ==
PROVIDERS: Emergency Provider Internal Medicine
DX: N39.0 Urinary tract infection, site not specified (principal); N20.0 Calculus of kidney; Z79.899 Other long term (current) drug therapy
CPT/HCPCS: 36415; 74176; 80053; 81001; 83605; 85025; 87040; 87086; 96361; 96374; 99284; 99285; J0696